=== PATIENT | female | born 2000 | race Caucasian/White ===

== ENCOUNTER 2021-02-21 23:50 | Inpatient (IN) | payer OTHER ==
[~2021-02-21] VITALS: Ht 170.2 cm; Wt 72.6 kg
--- NOTE | 2021-02-22 01:05 | NUR ---
COVIS swab obtained and takne to laboratory.
== END 2021-02-23 10:30 | disposition home or self-care (01) | DRG 807 ==
LOC: FBCO 23:50 → FBC 02-22 00:09
PROVIDERS: ADMIT Obstetrics & Gynecology; ATTEND Obstetrics & Gynecology
PROC: 10E0XZZ Delivery of Products of Conception, External Approach (ICD-10-PCS; principal; 2021-02-22)
PROC: 10907ZC Drainage of Amniotic Fluid, Therapeutic from Products of Conception, Via Natural or Artificial Opening (ICD-10-PCS; 2021-02-22)
PROC: 3E0R3BZ Introduction of Anesthetic Agent into Spinal Canal, Percutaneous Approach (ICD-10-PCS; 2021-02-22)
PROC: 00HU33Z Insertion of Infusion Device into Spinal Canal, Percutaneous Approach (ICD-10-PCS; 2021-02-22)
DX: O76 Abnormality in fetal heart rate and rhythm complicating labor and delivery (principal); Z37.0 Single live birth; Z3A.37 37 weeks gestation of pregnancy; O77.0 Labor and delivery complicated by meconium in amniotic fluid; O90.2 Hematoma of obstetric wound
CPT/HCPCS: 01960; 82803; 85027; A9270; C9803; J0690; J2001; J2274; J2405; J2550; J2590; J2704; J3010; J7121; U0003

== ENCOUNTER 2021-09-28 12:28 | Emergency (ER) | payer OTHER ==
[~2021-09-28] VITALS: Ht 172.7 cm; Wt 59.0 kg
== END 2021-09-28 15:12 | disposition home or self-care (01) ==
LOC: ED 12:28
DX: S62.317A Displaced fracture of base of fifth metacarpal bone, left hand, initial encounter for closed fracture (principal); W18.30XA Fall on same level, unspecified, initial encounter
CPT/HCPCS: 29125; 73130; 99283-25

== ENCOUNTER 2022-06-17 14:26 | Inpatient (IN) | payer OTHER ==
[~2022-06-17] VITALS: Ht 170.2 cm; Wt 70.3 kg
--- NOTE | 2022-06-17 18:59 | PR ---
[facility] [address], [place] [address] Signed Progress Notes IP Datetime Report Generated by CPN: 06/17/2022 18:59 PROGRESS NOTES: [id number] Impression: Normal Progression of Labor; Reassuring Heart Rate Procedures: Sterile Vag Exam Plan: Continue Present Management; Anticipate Vaginal Delivery Informed Consent Obtain: Vaginal Delivery VITAL SIGNS: [id number] Vital Signs: Reviewed; Within Normal Limits EXAM: [id number] Dilatation: 7.0 Effacement: 95 Station: -1 Contractions: q 2-3 min MEMBRANES: [id number] Comments: Pt seen and examined. Uncomfortable w/ contractions. AROM performed for moderate amount of meconium stained fluid. Cx unable to be easily reduced. Will allow pt to labor down and will contact anesthesia about possible bolus. Anticipate soon FETUS A: [id number] FHR Baseline: 120 Variability: Moderate 6-25bpm Accelerations: 15X15 Decelerations: None FHR Category: Category I Presentation: Vertex Comments on Fetus A: No evidence of metabolic acidosis FETUS B: [id number] Signing Physician: Donnell Arriaga DO Copies: ~ *Electronically Signed* 06/17/22 341 DONNELL ARRIAGA (CARLYLE) DO PATIENT NAME: LAURI STEEN PROGRESS NOTE DATE OF : 01 PHYSICIAN: DONNELL ARRIAGA (JD) DO RPT #: [id number] REPORT IS CONFIDENTIAL AND NOT TO BE RELEASED WITHOUT AUTHORIZATION
--- NOTE | 2022-06-18 12:33 | PR ---
[facility] [address] [facility] [place], [place] [address] Signed PP Progress Notes Datetime Report Generated by CPN: 06/18/2022 12:33 SUBJECTIVE: [id number] Pain: Within Normal Limits Nausea/Vomiting: Denies Flatus: Yes Bowel Movement: No Vital Signs: [id number] Vital Signs: Reviewed; Within Normal Limits Cardiovascular: Normal Respiratory: Normal Abdomen/Uterus: Normal Lochia: Normal Vulva/Perineum: Not Done CVA Tenderness: Normal Extremities: Normal Incision: Not Applicable Progress: Normal Exam Comments: Fundus firm U-2 nontender IMPRESSION/PLAN/PROCEDURES: [id number] Impression: Normal Progression Plan: Discharge Progress Notes: Pt seen and examined. Doing well. Ambulating, voiding, and tolerating full diet. Pain and lochia minimal. Breastefeeding well. No fevers/chills. Desires d/c home today. Reviewed d/c instructions and medications in detail. Planning micronor for pp contraception. F/U in office in 2 wks. Signing Physician: Donnell Arriaga DO Copies: ~ *Electronically Signed* 06/18/22 0832 DONNELL ARRIAGA (CARLYLE) DO PATIENT NAME: LAURI STEEN PROGRESS NOTE DATE OF : 01 PHYSICIAN: DONNELL ARRIAGA (JD) DO RPT #: [id number] REPORT IS CONFIDENTIAL AND NOT TO BE RELEASED WITHOUT AUTHORIZATION
== END 2022-06-18 21:00 | disposition home or self-care (01) | DRG 806 ==
LOC: FBCO 14:26 → FBC 15:30
PROVIDERS: ADMIT Obstetrics & Gynecology; ATTEND Obstetrics & Gynecology
PROC: 10E0XZZ Delivery of Products of Conception, External Approach (ICD-10-PCS; principal; 2022-06-17)
PROC: 10907ZC Drainage of Amniotic Fluid, Therapeutic from Products of Conception, Via Natural or Artificial Opening (ICD-10-PCS; 2022-06-17)
PROC: 00HU33Z Insertion of Infusion Device into Spinal Canal, Percutaneous Approach (ICD-10-PCS; 2022-06-17)
PROC: 3E0R3BZ Introduction of Anesthetic Agent into Spinal Canal, Percutaneous Approach (ICD-10-PCS; 2022-06-17)
DX: O99.02 Anemia complicating childbirth (principal); O99.324 Drug use complicating childbirth; Z37.0 Single live birth; O77.0 Labor and delivery complicated by meconium in amniotic fluid; Z67.40 Type O blood, Rh positive; F12.90 Cannabis use, unspecified, uncomplicated; Z3A.39 39 weeks gestation of pregnancy; D64.9 Anemia, unspecified
CPT/HCPCS: 36415; 85027; 86850; 86900; 86901; 87502; A9270; C9803; J2405; J2590; J2795; J7121; U0003

== ENCOUNTER 2023-07-08 19:38 | Emergency (ER) | payer OTHER ==
[~2023-07-08] VITALS: Ht 172.7 cm; Wt 68.0 kg
[~2023-07-08 19:38] MED LIST: HYDROCODON-ACE1 EA11 PO; NAPROSYN500 MG PO; ONDANSETRON ODT8 MG PO
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
[2023-07-08 20:58] VITALS: BP 138/76
== END 2023-07-08 20:58 | disposition home or self-care (01) ==
LOC: ED 19:38
DX: J02.9 Acute pharyngitis, unspecified (principal); S42.002D Fracture of unspecified part of left clavicle, subsequent encounter for fracture with routine healing; S42.102D Fracture of unspecified part of scapula, left shoulder, subsequent encounter for fracture with routine healing; S22.32XD Fracture of one rib, left side, subsequent encounter for fracture with routine healing; S12.590D Other displaced fracture of sixth cervical vertebra, subsequent encounter for fracture with routine healing; V89.2XXD Person injured in unspecified motor-vehicle accident, traffic, subsequent encounter
CPT/HCPCS: 87651; 99283

== ENCOUNTER 2023-08-19 22:56 | Inpatient (IN) | payer OTHER ==
[~2023-08-19] VITALS: Ht 172.7 cm; Wt 74.2 kg
[~2023-08-19 22:56] MED LIST changes: +NAPROXEN500 MG PO
[2023-08-19 23:21] LABS: BILIRUBIN, URINE NEGATIVE (negative); BLOOD/HGB, URINE TRACE-I (Negative); KETONE, URINE NEGATIVE (Negative); LEUK ESTERASE, URINE NEGATIVE (negative); NITRITE, URINE NEGATIVE (negative)
[2023-08-19 23:22] LABS: BACTERIA, URINE NONE SEEN /hpf (negative); CASTS, URINE NONE SEEN \\lpf; COLLECTION TYPE, URINE CLEAN CATCH; CRYSTALS, URINE NONE SEEN (0-1+); EPITHELIAL CELLS, URINE SQUAMOUS 1+ /lpf (0-1+); RED BLOOD CELLS, URINE 0-1 /hpf (0-5); REFLEX CULTURE, URINE No (No); WHITE BLOOD CELLS, URINE 0-1 /HPF (0-5)
[2023-08-19 23:29] LABS: AMPHETAMINES, URINE NEGATIVE (NEGATIVE); BARBITURATES, URINE NEGATIVE (NEGATIVE); BENZODIAZEPINE, URINE NEGATIVE (NEGATIVE); BUPRENORPHINE, URINE NEGATIVE (NEGATIVE); CANNABINOID, URINE POSITIVE (NEGATIVE); COCAINE, URINE NEGATIVE (NEGATIVE); ECSTASY, URINE NEGATIVE (NEGATIVE); FENTANYL, URINE NEGATIVE (NEGATIVE); METHADONE, URINE NEGATIVE (NEGATIVE); OPIATES, URINE NEGATIVE (NEGATIVE); OXYCODONE, URINE NEGATIVE (NEGATIVE); PHENCYCLIDINE, URINE NEGATIVE (NEGATIVE)
[2023-08-19 23:30] LABS: HEMATOCRIT 40.8 % (35.0-50.0); HEMOGLOBIN 13.3 g/dL (12.0-18.0); MCH 28.2 (27-36); MCHC 32.5 g/dl (30-36); MCV 86.8 fl (81-99); PLATELET COUNT 378 K/uL (140-440)
[2023-08-19 23:43] LABS: EOSINOPHILS, MANUAL DIFF 2; LYMPHOCYTES, MANUAL DIFF 45; MONOCYTES, MANUAL DIFF 3; NEUTROPHILS, MANUAL DIFF 50
[2023-08-19 23:55] LABS: ALBUMIN 4.2 g/dL (3.4-5.0); ALBUMIN/GLOBULIN RATIO 1.08 (1.1-2.4); ALCOHOL, MEDICAL 199 ng/dL (<3); ALKALINE PHOSPHATASE 116 U/L (46-116); ALT (SGPT) 42 U/L (14-59); ANION GAP 16.3 (7-21); AST (SGOT) 28 U/L (15-37); BILIRUBIN, TOTAL 0.4 ng/dL (0.2-1.0); CALCIUM 8.8 mg/dL (8.5-10.1); CARBON DIOXIDE 25 mmol/L (21-32); CHLORIDE 103 mmol/L (98-107); CREATININE, SERUM 0.64 mg/dL (0.55-1.02); GLOMERULAR FILTRATION RATE,EST 128 mL/min (>60); POTASSIUM 3.3 mmol/L (3.5-5.1); PROTEIN, TOTAL 8.1 g/dL (6.4-8.2); SALICYLATE 0.8 mg/dL (2.8-20.0); TSH, 3RD GENERATION 2.863 uIU/mL (0.358-3.740); UREA NITROGEN 8 mg/dL (7-18)
[2023-08-19 23:58] LABS: ACETAMINOPHEN 339 ug/mL (10-30)
[2023-08-20] VITALS (21 sets, daily range): BP systolic 98–141; BP diastolic 57–92
[2023-08-20 02:40] LABS: ACETAMINOPHEN 444 ug/mL (10-30)
[2023-08-20] MEDS ORDERED: ondansetron HCL 4 MG/2 ML VIAL IV ONE (02:45)
[2023-08-20] MEDS ORDERED: ACETYLCYSTEINE IV ONE (03:00)
[2023-08-20] MEDS ORDERED: CHARCOAL/SORBITOL SOLUTION 50 GM/240 ML BTL PO ONE (03:00)
[2023-08-20] MEDS ORDERED: DEXTROSE 5% IV SCH (03:00)
[2023-08-20] MEDS ORDERED: ACETYLCYSTEINE IV SCH (03:00)
[2023-08-20] MEDS ORDERED: DEXTROSE 5% IV ONE (03:00)
[2023-08-20 03:40] LABS: INR 0.94 (0.80-1.30); PROTIME 12.2 Sec (11.2-14.2)
[2023-08-20] MEDS ORDERED: ondansetron HCL 4 MG/2 ML VIAL IV PRN ×2 (04:00→09:15)
[2023-08-20] MEDS ORDERED: PROCHLORPERAZINE EDISYLATE 10 MG/2 ML VIAL IV PRN ×2 (05:15→06:30)
[2023-08-20 05:33] LABS: BASOPHILS 0.7 % (0-2); EOSINOPHILS 0.2 % (0-6); HEMATOCRIT 38.3 % (35.0-50.0); HEMOGLOBIN 12.6 g/dL (12.0-18.0); LYMPHOCYTES 34.9 % (24-44); MCH 28.2 (27-36); MCHC 32.9 g/dl (30-36); MCV 85.9 fl (81-99); NEUTROPHILS 61.2 % (39-80); PLATELET COUNT 355 K/uL (140-440); RBC 4.45 M/ul (4.3-5.7); RDW 16.8 (10.5-15.0)
[2023-08-20] MEDS ORDERED: SODIUM CHLORIDE 0.9% 1,000 ML IV SCH (05:45)
[2023-08-20 05:59] LABS: ALBUMIN 3.6 g/dL (3.4-5.0); ALBUMIN/GLOBULIN RATIO 0.92 (1.1-2.4); ALKALINE PHOSPHATASE 98 U/L (46-116); ALT (SGPT) 41 U/L (14-59); ANION GAP 24.8 (7-21); AST (SGOT) 30 U/L (15-37); BILIRUBIN, TOTAL 0.3 ng/dL (0.2-1.0); BUN/CREATININE RATIO 10.16 (6.0-28.6); CALCIUM 8.4 mg/dL (8.5-10.1); CARBON DIOXIDE 17 mmol/L (21-32); CHLORIDE 105 mmol/L (98-107); CREATININE, SERUM 0.59 mg/dL (0.55-1.02); GLOMERULAR FILTRATION RATE,EST 131 mL/min (>60); PHOSPHORUS, INORGANIC 3.2 mg/dL (2.5-4.9); POTASSIUM 3.8 mmol/L (3.5-5.1); PROTEIN, TOTAL 7.5 g/dL (6.4-8.2); UREA NITROGEN 6 mg/dL (7-18)
[2023-08-20 06:01] LABS: ACETAMINOPHEN 325 ug/mL (10-30)
[2023-08-20] MEDS ORDERED: droPERidol 5 MG/2 ML VIAL IV ONE (06:30)
[2023-08-20] MEDS ORDERED: PHARMACY RENAL DOSE ADJUSTMENT 1 DOSE MISC PO SCH (12:00)
[2023-08-20 12:48] LABS: ACETAMINOPHEN 44 ug/mL (10-30)
--- NOTE | 2023-08-20 13:05 | EKG ---
[facility] [address] [facility] [place] [address] Signed Sinus tachycardia Nonspecific ST abnormality Abnormal ECG No previous ECGs available Confirmed by Sandra Okeefe MD () on 08/20/2023 1:05:37 PM Electronically Signed By: SANDRA OKEEFE MD 08/20/23 1305 PATIENT NAME: LAURI STEEN Electrocardiogram DATE OF : 01 PHYSICIAN: SANDRA OKEEFE MD REPORT #: [id number] REPORT IS CONFIDENTIAL AND NOT TO BE RELEASED WITHOUT AUTHORIZATION
[2023-08-20 13:19] LABS: ALBUMIN 3.6 g/dL (3.4-5.0); ANION GAP 19.4 (7-21); BILIRUBIN, TOTAL 0.5 ng/dL (0.2-1.0); BUN/CREATININE RATIO 7.93 (6.0-28.6); CALCIUM 8.1 mg/dL (8.5-10.1); CREATININE, SERUM 0.63 mg/dL (0.55-1.02); POTASSIUM 3.4 mmol/L (3.5-5.1); PROTEIN, TOTAL 7.2 g/dL (6.4-8.2)
[2023-08-20] MEDS ORDERED: POTASSIUM CHLORIDE 10 MEQ TABCR PO ONE (15:00)
[2023-08-21 00:34] LABS: INR 1.21 (0.80-1.30); PROTIME 14.5 Sec (11.2-14.2)
[2023-08-21 00:35] LABS: ACETAMINOPHEN 0 ug/mL (10-30); ALBUMIN 2.8 g/dL (3.4-5.0); ALKALINE PHOSPHATASE 78 U/L (46-116); ALT (SGPT) 39 U/L (14-59); ANION GAP 14.3 (7-21); AST (SGOT) 20 U/L (15-37); BILIRUBIN, TOTAL 0.5 ng/dL (0.2-1.0); BUN/CREATININE RATIO 6.66 (6.0-28.6); CALCIUM 8.1 mg/dL (8.5-10.1); CARBON DIOXIDE 23 mmol/L (21-32); CHLORIDE 109 mmol/L (98-107); GLOMERULAR FILTRATION RATE,EST 130 mL/min (>60); POTASSIUM 3.3 mmol/L (3.5-5.1); PROTEIN, TOTAL 5.9 g/dL (6.4-8.2); UREA NITROGEN 4 mg/dL (7-18)
[2023-08-21 01:00] VITALS: BP 138/86
[2023-08-21] MEDS ORDERED: POTASSIUM CHLORIDE 10 MEQ TABCR PO ONE (01:00)
[2023-08-21 02:45] VITALS: BP 115/64
[2023-08-21 04:24] VITALS: BP 119/91
[2023-08-21 08:29] VITALS: BP 141/77
[2023-08-21 15:26] LABS: HEPATITIS B SURFACE ANTIGEN Negative (Negative)
[2023-08-21 15:48] LABS: HIV 1,2 COMBO ANTIGEN/ANTIBODY Negative (Negative)
[2023-08-22 12:20] LABS: HCV QNT BY NAAT (IU/ML) Not Detected (()); HCV QNT BY NAAT (LOG IU/ML) Not Detected (()); HCV QNT BY NAAT INTERP Not Detected (Not Detected)
== END 2023-08-21 09:15 | disposition home or self-care (01) | DRG 918 ==
LOC: ED 22:56 → CCU 22:58
PROVIDERS: Emergency Medicine; ADMIT Family Medicine; ATTEND Family Medicine
DX: T39.1X2A Poisoning by 4-Aminophenol derivatives, intentional self-harm, initial encounter (principal); E87.20 Acidosis, unspecified; R45.851 Suicidal ideations; F12.90 Cannabis use, unspecified, uncomplicated; E87.6 Hypokalemia; R78.0 Finding of alcohol in blood
CPT/HCPCS: 36415; 80053; 80307; 81001; 83735; 84100; 84443; 84703; 85025; 85610; 87340; 87522; 93005; 93010; 96365; 96366; 96374; 96375; 96376; 99285-25; A9270; G0378; G0480; J0132; J0780; J1790; J2405; J7030; J7060; J7070